=== PATIENT | male | born 1990 ===

== ENCOUNTER 2024-06-11 18:34 | Emergency (ER) | payer OTHER ==
[2024-06-11] MEDS: Iopamidol 612 MG/ML 100 ML Bottle IVPUSH ONE (19:07)
[2024-06-11] MEDS ORDERED: LORazepam 2 MG/ML SDV IVPUSH ONE (19:14)
[2024-06-11] MEDS ORDERED: Ketamine 500 mg/10 ML MDV IM PRN (19:24)
[2024-06-11] MEDS ORDERED: Flumazenil 0.1 MG/ML 5 ML MDV IVPUSH PRN (19:25)
[2024-06-11] MEDS: Ketamine 500 mg/10 ML MDV IV PRN (19:37)
[2024-06-11] MEDS: LORazepam 2 MG/ML SDV IVPUSH ONE (19:40)
[2024-06-11] MEDS ORDERED: Midazolam 1 MG/ML 2 ML SDV IVPUSH ONE (19:41)
[2024-06-11 19:43] LABS: BASOPHILS PERCENT AUTO 0.2 % (0.0-1.0); EOSINOPHILS PERCENT AUTO 3.4 % (1.0-3.0); HEMATOCRIT 43.7 % (40.0-54.0); HEMOGLOBIN 14.3 g/dL (14.0-18.0); LYMPHOCYTES PERCENT AUTO 20.8 % (20.5-50.1); MEAN CORPUSCULAR HEMOGLOBIN 29.7 pg (27.0-34.0); MEAN CORPUSCULAR HGB CONC 32.7 g/dL (33.0-35.0); MEAN CORPUSCULAR VOLUME 90.9 fL (80-100); MONOCYTES PERCENT AUTO 13.2 % (2-8); NEUTROPHILS PERCENT AUTO 62.4 % (42.2-75.2); PLATELET COUNT,PLT 308 10^3/uL (150-450); RED BLOOD CELL COUNT 4.81 10^6/uL (4.6-6.2); WHITE BLOOD CELL COUNT,WBC 6.1 10^3/uL (5.0-10.0)
[2024-06-11] MEDS ORDERED: Ketamine 500 mg/10 ML MDV ONE (19:47)
[2024-06-11 20:03] LABS: ALANINE AMINOTRANSFERASE,ALT 231 U/L (16-63); ALBUMIN 3.3 g/dL (3.4-5.0); ALKALINE PHOSPHATASE 111 U/L (46-116); ASPARTATE AMNIOTRANSFERASE,AST 111 U/L (15-37); BILIRUBIN TOTAL 0.7 mg/dL (0.2-1.0); BLOOD UREA NITROGEN,BUN 15 mg/dL (7-18); BUN/CREATININE RATIO 10.5 (No establ ref range); CALCIUM 8.8 mg/dL (8.5-10.1); CARBON DIOXIDE,CO2 28 mmol/L (21-32); CHLORIDE,CL 102 mmol/L (98-107); CREATININE 1.43 mg/dL (0.70-1.30); GLUCOSE RANDOM 107 mg/dL (70-99); PROTEIN TOTAL,TP 7.6 g/dL (6.4-8.2); SODIUM,NA 137 mmol/L (136-145)
[2024-06-11] MEDS: Ketamine 500 mg/10 ML MDV IM ONE (20:08)
[2024-06-11 20:10] LABS: A/G RATIO 0.77; ESTIMATED GFR 67 mL/min (>=60)
[2024-06-11] MEDS: Sodium Chloride 0.9% 500 ML IV ONE (20:52)
== END 2024-06-11 21:40 ==
LOC: DL.ED 18:34
DX: F99 Mental disorder, not otherwise specified (principal)
CPT/HCPCS: 36415; 74177; 80053; 83605; 85025; 96361; 96374; 96375; 99284; J2060; J3490; J7040; Q9967; 99283